=== PATIENT | female | born 1940 | race Two or more races ===

== ENCOUNTER 2021-12-20 18:08 | Inpatient (IN) | payer OTHER, MEDICAID ==
[~2021-12-20] VITALS: Ht 144.8 cm; Wt 72.0 kg
[2021-12-20 20:21] LABS: Basophils # (auto) 0.2 10 ^3/uL (0-0.2); Eosinophils # (auto) 0.2 10 ^3/uL (0-0.8); Eosinophils % (auto) 2.8 % (0.0-7.0); Hematocrit 36.7 % (36.0-46.0); Hemoglobin 12.3 g/dL (12.2-16.2); Lymphocytes # (auto) 1.4 10 ^3/uL (0.4-5.4); Lymphocytes % (auto) 18.6 % (10.0-50.0); Mean Corpuscular Hemoglobin 28.4 pg (28.0-32.0); Mean Corpuscular Hgb Conc. 33.4 g/dL (32.0-36.0); Monocytes # (auto) 0.6 10 ^3/uL (0-1.3); Neutrophils # (auto) 5.3 10 ^3/uL (1.6-8.6); Neutrophils % (auto) 68.6 % (37.0-80.0); Nucleated Red Blood Cells % 0.1 %; Red Blood Cells 4.32 10^6/uL (4.0-5.20); Red Cell Distribution Width 14.7 % (11.8-14.3); White Blood Cell 7.7 10^3/uL (4.4-10.8)
[2021-12-20 20:42] LABS: Albumin 3.6 g/dL (3.4-5.0); BUN/Creatinine Ratio 12.3; Calcium 8.3 mg/dL (8.5-10.1); Magnesium 1.8 mg/dL (1.6-2.6); Potassium 4.5 mmol/L (3.5-5.1)
[2021-12-20 20:45] LABS: Bilirubin, Total 0.3 mg/dL (0.2-1.0)
[2021-12-20 20:55] LABS: INR 0.9 (0.9-1.15); Partial Thromboplastin Time 30.9 sec (24.6-33.4)
[2021-12-20 23:33] VITALS: BP 169/90
[2021-12-21] MEDS ORDERED: SODIUM CHLORIDE 0.9% 1,000 ML IV ONE (01:15)
[2021-12-21] MEDS ORDERED: DEXTROSE (50%) 50ML SYRG IV PRN (03:15)
[2021-12-21] MEDS ORDERED: cloNIDine HCL 0.1 MG TAB PO PRN (03:15)
[2021-12-21] MEDS ORDERED: ONDANSETRON HCL 4 MG/2 ML VIAL IV PRN (03:15)
[2021-12-21] MEDS ORDERED: ACETAMINOPHEN 325 MG TAB PO PRN (03:15)
[2021-12-21] MEDS ORDERED: cefTRIAXone 1GM/50ML D5W 50 ML IV SCH (03:30)
[2021-12-21] MEDS ORDERED: AZITHROMYCIN 500MG/ 250ML 250 ML IV SCH (04:00)
[2021-12-21 04:16] LABS: Urine Bacteria NONE SEEN /hpf (None Seen); Urine Blood Negative /uL (Negative); Urine Specific Gravity 1.019 (1.001-1.035); Urine WBC 2 /hpf (0 - 5)
[2021-12-21] MEDS ORDERED: InsuLIN REG 1unit/0.01ml Soln (100units/ml) SC SCH (07:00)
[2021-12-21] MEDS ORDERED: ACCU-CHEK COMFORT CURVE STRIP VI SCH (07:00)
[2021-12-21] MEDS ORDERED: LOSARTAN POTASSIUM 50 MG TAB PO SCH (10:00)
[2021-12-21] MEDS ORDERED: ENOXAPARIN SOD 40 MG/0.4 ML SYRINGE SC SCH (10:00)
[2021-12-21] MEDS ORDERED: PANTOPRAZOLE 40 MG TAB PO SCH (10:00)
== END 2021-12-21 03:48 | disposition left against medical advice (07) | DRG 195 ==
LOC: ER 18:11 → OVERFLOW 12-21 03:06
PROVIDERS: ADMIT Nurse Practitioner; ATTEND Internal Medicine
DX: J18.9 Pneumonia, unspecified organism (principal); E11.9 Type 2 diabetes mellitus without complications; E66.9 Obesity, unspecified; E78.5 Hyperlipidemia, unspecified; F41.9 Anxiety disorder, unspecified; M54.50 Low back pain, unspecified; Z53.21 Procedure and treatment not carried out due to patient leaving prior to being seen by health care provider; Z20.822 Contact with and (suspected) exposure to COVID-19; I11.9 Hypertensive heart disease without heart failure; Z68.34 Body mass index [BMI] 34.0-34.9, adult
CPT/HCPCS: 36415; 71045; 80053; 81001; 83735; 83880; 84484; 85025; 85610; 85730; 87426; G0378